=== PATIENT | female | born 1975 | race Caucasian/White ===

== ENCOUNTER 2025-08-28 01:08 | Emergency (ER) | payer BC ==
[~2025-08-28] VITALS: Ht 167.6 cm; Wt 79.4 kg
[2025-08-28] MEDS ORDERED: ONDANSETRON HCL/PF 4 MG/2 ML VIAL ONE (01:28)
[2025-08-28] MEDS ORDERED: DICYCLOMINE HCL 10 MG CAPSULE PO ONE (01:28)
[2025-08-28] MEDS ORDERED: PANTOPRAZOLE 40 MG VIAL ONE (01:28)
[2025-08-28] MEDS: IV NS 0.9% 1,000 ML BAG IV ONE (01:32)
[2025-08-28] MEDS: PANTOPRAZOLE 40 MG VIAL IV ONE (01:32)
[2025-08-28] MEDS: ONDANSETRON HCL/PF 4 MG/2 ML VIAL IV ONE (01:32)
[2025-08-28] MEDS: DICYCLOMINE HCL 10 MG CAPSULE PO ONE (01:35)
[2025-08-28 01:40] LABS: PLATELET COUNT (AUTO) 260 K/uL (150-450); RED BLOOD CELL COUNT(AUTO) 4.69 MIL/uL (4.0-5.2); RED CELL DISTRIBUTION WIDTH 12.8 % (11.5-15.0); WHITE BLOOD COUNT (AUTO) 15.2 K/uL (4.3-11.0)
[2025-08-28 01:53] LABS: CALCIUM, SERUM 9.5 mg/dL (8.5-10.1); CREATININE 0.7 mg/dL (0.6-1.3); SODIUM SERUM 142 mmol/L (136-145); UREA NITROGEN, BLOOD 18 mg/dL (7-18)
[2025-08-28 01:56] LABS: ASPARTATE AMINOTRANSFERASE 16 U/L (15-37); TOTAL PROTEIN, SERUM 7.5 g/dL (6.4-8.2)
[2025-08-28 02:00] LABS: LACTIC ACID 2.2 mmol/L (0.4-2.0)
[2025-08-28] MEDS ORDERED: MORPHINE SULFATE INJ 4 MG/ML DISP.SYRIN ONE (02:01)
[2025-08-28] MEDS: MORPHINE SULFATE INJ 2 MG/ML DISP.SYRIN IV ONE (02:02)
[2025-08-28 02:39] LABS: APPEARANCE,URINE CLEAR (CLEAR); BLOOD, URINE NEGATIVE Ery/uL (NEGATIVE); LEUKOCYTE ESTERASE ,URINE NEGATIVE (NEGATIVE); NITRITE, URINE NEGATIVE (NEGATIVE); UGLUCOSE NEGATIVE (NEGATIVE)
[2025-08-28] MEDS ORDERED: DICY10CA37 PO (03:54)
[2025-08-28] MEDS ORDERED: ONDA4TAB5 PO (03:54)
[2025-08-28] MEDS ORDERED: AMOX-430 PO (03:54)
[2025-08-28] MEDS ORDERED: METR500T PO (03:54)
[2025-08-28] MEDS ORDERED: OXYC5TAB3 PO (03:55)
[2025-08-28 04:08] VITALS: BP 120/71; TEMP 98; O2SAT 97
== END 2025-08-28 04:11 | disposition home or self-care (01) ==
LOC: ER 01:14
DX: K80.20 Calculus of gallbladder without cholecystitis without obstruction (principal); R10.13 Epigastric pain
CPT/HCPCS: 99285; 96374; 76705; 96375; 96361; 85025; 83605; 83690; 83735; 81003; 36415; 80053; 86140; J2270; J2405; J7030; J2470